=== PATIENT | female | born 1960 | race Caucasian/White ===

== ENCOUNTER 2017-09-10 06:14 | Inpatient (IN) | payer MEDICARE, MEDICAID ==
[2017-09-09 12:53] VITALS: BMI 24.6
--- NOTE | 2017-09-09 23:00 | HP ---
HISTORY OF PRESENT ILLNESS: Ms. Villafuerte is a pleasant 57-year-old woman, who is a former patient of our s who has had a previous left-sided unilateral L4 through S1 fusion. She returns today having furthe r degradation of her condition due to bilateral L4 radiculopathy, left worse than right. She also talley s severe low back pain mostly to the left. 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 There is mild pathology to the right. She has been seeing Dr. Nunez in [place] for some time and has been administering different i nterventions including injections and these have helped, but very limited time, and overall she hopes for some other options today. CURRENT MEDICATIONS: None. ALLERGIES: No known drug allergies. PAST SURGICAL HISTORY: Lumbar fusion. PHYSICAL EXAMINATION: GENERAL: The patient is alert and oriented x3. NEUROLOGIC: Gait is severely antalgic, very limited range of motion in bilateral lower extremities a nd lumbar secondary to pain. ASSESSMENT: Spinal fusion failure and lumbar radiculopathy. PLAN: Discussed with Dr. Hopkins who met with the patient, reviewed imaging and ultimately advocated f or a revision of L4-L5 fusion. He explained to the patient the risks, benefits, and alternatives to the procedure. The patient expressed understanding and would like to move forward with surgery as [place]. I do believe the patient is mentally competent and capable of making medical decisions for herself and we will move forward with surgery as planned. Hayden Encinas PA-C, dictating for Dr. Hopkins.
[2017-09-10] MEDS ORDERED: CEFAZOLIN/Water 2 GM/20 ML SYRINGE ONE (07:16)
[2017-09-10 07:24] LABS: Anion Gap 15 mmol/L (10-20); BUN (Urea Nitrogen) Less than 4 mg/dL (9.8-20.1); Calc. Creatinine Clearance 111 mL/min (70-130); Calcium 9.7 mg/dL (7.8-10.44); Carbon Dioxide 30 mmol/L (22-29); Chloride 99 mmol/L (98-107); Estimated GFR-MDRD Greater than 90; Glucose 93 mg/dL (70-105); Potassium 3.5 mmol/L (3.5-5.1); Sodium 140 mmol/L (136-145)
[2017-09-10] MEDS ORDERED: Bupivacaine/Epinephrine 0.25% 30 ML VIAL ONE (08:54)
[2017-09-10] MEDS ORDERED: Thrombin 5000 UNITS/5 ML VIAL ONE (08:54)
[2017-09-10] MEDS ORDERED: Albuterol Sulfate HFA (OR ONLY) ONE ×2 (09:01→15:14)
[2017-09-10] MEDS ORDERED: Fentanyl 250 MCG/5 ML VIAL ONE (09:09)
[2017-09-10] MEDS ORDERED: Ketamine 50 MG/ML VIAL ONE (09:11)
[2017-09-10] MEDS ORDERED: Promethazine HCl 25 MG/ML VIAL SLOW IVP PRN (10:15)
[2017-09-10] MEDS ORDERED: HYDROmorphone 2 MG/ML VIAL SLOW IVP PRN (10:15)
[2017-09-10] MEDS ORDERED: Ondansetron HCl/PF 4 MG/2 ML Vial IVP PRN ×2 (10:15→11:32)
[2017-09-10] MEDS ORDERED: Meperidine HCl/PF 25 MG/ML VIAL SLOW IVP PRN (10:15)
[2017-09-10] MEDS ORDERED: Morphine Sulfate 2 MG/ML SYRINGE SLOW IVP PRN (10:15)
[2017-09-10] MEDS ORDERED: Promethazine HCl 25 MG/ML VIAL IM PRN (10:15)
[2017-09-10] MEDS ORDERED: Cyclobenzaprine 10 MG TAB PO PRN (11:32)
[2017-09-10] MEDS ORDERED: Acetaminophen 325 MG TAB PO PRN (11:32)
[2017-09-10] MEDS ORDERED: Bisacodyl 10 MG SUPP PR PRN (11:32)
[2017-09-10] MEDS ORDERED: diphenhydrAMINE 50 MG/ML VIAL IVP PRN (11:32)
[2017-09-10] MEDS ORDERED: HYDROcodone/Acetaminophen 7.5/325 mg Tablet PO PRN ×2 (11:35→12:27)
[2017-09-10] MEDS ORDERED: Non-Formulary Item 1 EACH (Oxycodone Hcl/Acetaminophen [Percocet] 1 TABLET) PO PRN (11:35)
[2017-09-10] MEDS ORDERED: Fentanyl 100 MCG/2 ML VIAL ONE ×3 (12:00→12:42)
[2017-09-10] MEDS ORDERED: HYDROmorphone 0.5 MG/0.5 ML SYRINGE ONE ×2 (12:06→12:17)
[2017-09-10] MEDS ORDERED: Morphine 4 MG/ML Carpuject SLOW IVP PRN (12:25)
[2017-09-10] MEDS: Sodium Chloride 0.9% 1,000 ML IV SCH (12:46)
[2017-09-10] MEDS: oxyCODONE/Acetaminophen 5 mg/325 mg Tablet PO PRN ×3 (13:21→23:57)
--- NOTE | 2017-09-10 13:36 | OP ---
DATE OF PROCEDURE: 09/10/2017. SURGEON: Dr. Bartolome Hopkins. CATTLE DIPPER: Hayden Encinas PA-C. INDICATION: Pain. DIAGNOSIS: Failed fusion in lumbar radiculopathy. PROCEDURES PERFORMED: Exploration of fusion L4-L5, distraction of L4-L5, pedicle screws on the left, decompression, facetectomy of L4-L5 on the right, posterolateral instrument infusion of L4-L5 on the right, placement of allograft, placement of autograft. ANESTHESIA: General. TECHNIQUE: The patient was brought to the operating room and placed under general anesthesia. She w as flipped from a supine to a prone position on the operating room table. Her old linear incision wa s identified and prepped and draped in the usual sterile fashion. Following an appropriate operative pause, the incision was created. The soft tissues were swept away from midline. A self-retaining r etractor was placed in the wound for optimal exposure. The L4-L5 screws on the left were identified. We redirected our attention to the right where a facetectomy was performed at L4-L5 on the right to decompress the lateral recesses as well as the exiting L4 nerve root. Pedicle screws were then plac ed with the aid of C-arm fluoroscopy. An intraoperative 3D CT scan was performed, which showed excel lent placement of hardware. A ariel was placed across the screws on the right and final tightened. Th e left L4 pedicle screw was loosened and under distraction, retightened in order to decompress the ex iting left L4 nerve root. The wound was copiously irrigated. Hemostasis was maintained throughout. Allograft and autograft material was then placed within the lateral confines of the instrumentation construct on both the left and right. The wound was then closed in anatomic layers and a pressure dr essing was applied. There were no known procedural complications.
[2017-09-10] MEDS ORDERED: Sodium Chloride 0.9% 10 ML ONE (14:42)
[2017-09-10] MEDS ORDERED: Non-Formulary Item 1 EACH (Gabapentin [Gabapentin] 1 TAB) PO SCH (15:00)
[2017-09-10] MEDS ORDERED: TIZANIDINE HCL PO SCH (15:00)
[2017-09-10] MEDS ORDERED: PHENYLEPHRINE-NS 100 MCG/ML 10 ML SYRINGE ONE (15:14)
[2017-09-10] MEDS ORDERED: Vecuronium 10 MG VIAL ONE (15:14)
[2017-09-10] MEDS ORDERED: Ondansetron HCl/PF 4 MG/2 ML Vial ONE (15:14)
[2017-09-10] MEDS ORDERED: Propofol 200 MG/20 ML VIAL ONE (15:14)
[2017-09-10] MEDS ORDERED: Lidocaine 1% PF 5 ML VIAL ONE (15:14)
[2017-09-10] MEDS ORDERED: Glycopyrrolate 0.2 MG/ML 5 ML SYRINGE ONE (15:14)
[2017-09-10] MEDS ORDERED: Dexamethasone 20 MG/5 ML VIAL ONE (15:14)
[2017-09-10] MEDS ORDERED: Metoclopramide HCl 10 MG/2 ML VIAL ONE (15:14)
[2017-09-10] MEDS: Gabapentin 300 MG CAP PO SCH ×2 (15:21→21:30)
[2017-09-10] MEDS: tiZANidine HCl 4 MG TAB PO SCH ×2 (15:22→21:30)
[2017-09-10] MEDS: CEFAZOLIN/Water 2 GM/20 ML SYRINGE SLOW IVP SCH (18:15)
[2017-09-10] MEDS ORDERED: traZODone HCl 50 MG TAB PO SCH ×2 (21:00)
[2017-09-11] MEDS: Sodium Chloride 0.9% 1,000 ML IV SCH (01:57)
[2017-09-11] MEDS ORDERED: Sodium Chloride 0.9% 10 ML ONE (02:03)
[2017-09-11] MEDS: CEFAZOLIN/Water 2 GM/20 ML SYRINGE SLOW IVP SCH (02:14)
[2017-09-11] MEDS: oxyCODONE/Acetaminophen 5 mg/325 mg Tablet PO PRN ×2 (04:15→08:18)
[2017-09-11 04:29] VITALS: BP 134/66
[2017-09-11 07:42] VITALS: TEMP 97.9
[2017-09-11] MEDS: tiZANidine HCl 4 MG TAB PO SCH (08:18)
[2017-09-11] MEDS: Gabapentin 300 MG CAP PO SCH (08:18)
[2017-09-11] MEDS ORDERED: Folic Acid 1 MG TAB PO SCH (09:00)
[2017-09-11] MEDS ORDERED: Estradiol 1 MG TAB PO SCH (09:00)
[2017-09-11] MEDS ORDERED: Furosemide 20 MG TAB PO SCH (09:00)
[2017-09-11] MEDS ORDERED: FLU VACC QS2017-18 36 mo. & older 0.5 ML SYRINGE IM ONE (09:00)
--- NOTE | 2017-09-11 17:12 | DIS ---
Ms. Lee was admitted to [facility] on 09/10/[address] Bartolome Hopkins in the postoper ative period. ADMISSION DIAGNOSIS: Back pain, status post lumbar fusion. DISCHARGE DIAGNOSIS: Back pain, status post lumbar fusion. HOSPITAL COURSE: Ms. Lee's hospital course was not complicated by any significant abnormality shoul d there were no consultations were ordered but cancelled physical therapy, occupational therapy, and rehabilitation. She ambulated well, had minimal pain, trouble and ultimately was discharged home in good condition with outpatient followup in 2 weeks.
== END 2017-09-11 09:55 | disposition home or self-care (01) | DRG 460 ==
LOC: SURG A 06:14 → 3SE 12:22
PROVIDERS: ADMIT Neurological Surgery; ATTEND Neurological Surgery
PROC: 0SG0071 Fusion of Lumbar Vertebral Joint with Autologous Tissue Substitute, Posterior Approach, Posterior Column, Open Approach (ICD-10-PCS; principal; 2017-09-10)
PROC: 01NB0ZZ Release Lumbar Nerve, Open Approach (ICD-10-PCS; 2017-09-10)
DX: T84.498A Other mechanical complication of other internal orthopedic devices, implants and grafts, initial encounter (principal); M54.16 Radiculopathy, lumbar region; Z98.1 Arthrodesis status; Y83.1 Surgical operation with implant of artificial internal device as the cause of abnormal reaction of the patient, or of later complication, without mention of misadventure at the time of the procedure
CPT/HCPCS: 76001; 80048; A4216; C1713; J0131; J1100; J1170; J2001; J2270; J2405; J2704; J2765; J3010